=== PATIENT | female | born 1995 | race Caucasian/White ===

== ENCOUNTER → 2025-07-18 | Outpatient (CLI) | payer OTHER ==
[2025-07-18 13:26] LABS: PLATELET COUNT, AUTOMATED 280 10^3/uL (150-450)
[2025-07-18 13:29] LABS: GLUCOSE CHALLENGE TEST 1 HOUR 113 MG/DL (LESS THAN 140)
[2025-07-18 14:14] LABS: Trichomonas vaginalis (AMP) NOT DETECTED (NEGATIVE)
[2025-07-18 14:38] LABS: GC DNA AMPLIFICATION NEGATIVE (NEGATIVE)
[2025-07-18 15:36] LABS: HIV 1&2 SCREEN NEGATIVE (NEGATIVE)
[2025-07-18 15:44] LABS: HEPATITIS C VIRUS ABY INDEX < 0.02 INDEX (<0.8)
== END ==
LOC: M PLALAB 08:36
PROVIDERS: ATTEND Advanced Practice Midwife
DX: Z34.82 Encounter for supervision of other normal pregnancy, second trimester (principal)

== ENCOUNTER → 2025-07-31 | Outpatient (CLI) | payer OTHER ==
[2025-07-31 10:18] LABS: PLATELET COUNT, AUTOMATED 253 10^3/uL (150-450)
[2025-07-31 10:33] LABS: TOTAL PROTEIN,RANDOM URINE 12.6 MG/DL (0.0-14.0)
[2025-07-31 10:39] LABS: LDH LACTATE DEHYDROGENASE 192 U/L (120-246)
[2025-07-31 10:40] LABS: ALT/SGPT 22 U/L (7.0-40); AST/SGOT 31 U/L (<34); CREATININE FOR GFR 0.58 MG/DL (0.55-1.30); GLOMERULAR FILTRATION RATE > 90.0 (>60)
== END ==
LOC: M PLALAB 08:01
PROVIDERS: ATTEND Nurse Practitioner Family
DX: O16.2 Unspecified maternal hypertension, second trimester (principal); Z3A.00 Weeks of gestation of pregnancy not specified

== ENCOUNTER → 2025-08-22 | Outpatient (CLI) | payer OTHER | LOC: M WHC 10:00 | PROVIDERS: ATTEND Nurse Practitioner Family | DX: Z87.59 Personal history of other complications of pregnancy, childbirth and the puerperium (principal) ==

== ENCOUNTER → 2025-09-14 | Outpatient (REF) | payer OTHER | LOC: M PLALAB 15:27 | PROVIDERS: ATTEND Advanced Practice Midwife | DX: Z53.9 Procedure and treatment not carried out, unspecified reason (principal) ==

== ENCOUNTER → 2025-09-14 | Outpatient (CLI) | payer OTHER ==
[2025-09-14 17:37] LABS: PLATELET COUNT, AUTOMATED 281 10^3/uL (150-450)
[2025-09-14 17:57] LABS: TOTAL PROTEIN,RANDOM URINE 15.8 MG/DL (0.0-14.0)
[2025-09-14 18:00] LABS: LDH LACTATE DEHYDROGENASE 196 U/L (120-246)
[2025-09-14 18:03] LABS: ALT/SGPT 20 U/L (7.0-40); AST/SGOT 18 U/L (<34); CREATININE FOR GFR 0.65 MG/DL (0.55-1.30); GLOMERULAR FILTRATION RATE > 90.0 (>60)
== END ==
LOC: M PLALAB 15:32
PROVIDERS: ATTEND Advanced Practice Midwife
DX: O13.3 Gestational [pregnancy-induced] hypertension without significant proteinuria, third trimester (principal); Z3A.00 Weeks of gestation of pregnancy not specified

== ENCOUNTER → 2025-09-19 | Outpatient (CLI) | payer OTHER ==
[~2025-09-19] MED LIST: COLA100C5 PO; ECOT81TA5 PO; PRENTAB53 PO
== END ==
LOC: M RAD 15:29
PROVIDERS: ATTEND Advanced Practice Midwife
DX: O13.3 Gestational [pregnancy-induced] hypertension without significant proteinuria, third trimester (principal); Z3A.36 36 weeks gestation of pregnancy

== ENCOUNTER 2025-09-21 09:30 | Inpatient (IN) | payer OTHER ==
[~2025-09-21] VITALS: Ht 170.2 cm; Wt 94.6 kg
[2025-09-21] MEDS ORDERED: ECOT81TA5 PO (10:53)
[2025-09-21] MEDS ORDERED: PRENTAB53 PO (10:53)
[2025-09-21] MEDS ORDERED: COLA100C5 PO (10:53)
[2025-10-02] VITALS (10 sets, daily range): BP systolic 116–137; BP diastolic 55–74; TEMP 97.6; O2SAT 96–98
[2025-10-02 05:54] LABS: PLATELET COUNT, AUTOMATED 265 10^3/uL (150-450)
[2025-10-02] MEDS ORDERED: HOME MED LIST COMPLETE! XX SCH (06:20)
[2025-10-02] MEDS: LR 1,000 ML IV SCH ×2 (06:35→09:07)
[2025-10-02 06:56] LABS: HIV 1&2 SCREEN NEGATIVE (NEGATIVE)
[2025-10-02 07:04] LABS: HEPATITIS C VIRUS ABY INDEX < 0.02 INDEX (<0.8)
[2025-10-02] MEDS ORDERED: OXYTOCIN 30UNITS IN 0.9% NaCl 500ML IV BAG IV ONE (07:17)
[2025-10-02] MEDS ORDERED: PHENYLephrine 500MCG 5ML (100MCG/ML) SYRINGE As Ordered ONE (07:17)
[2025-10-02] MEDS ORDERED: MORPHINE PRES-FREE INJ 10 MG/10 ML VIAL As Ordered ONE (07:17)
[2025-10-02] MEDS: BICITRA 30 ML SOLN UDC PO ONE (07:23)
[2025-10-02] MEDS: ceFAZolin SODIUM 2 GM in DEXTROSE 5% (D5W) ADV/MINI-BAG 50 ML IV ONE (07:23)
[2025-10-02] MEDS ORDERED: KETOROLAC 30 MG/ML 1 ML VIAL As Ordered ONE (07:44)
[2025-10-02] MEDS ORDERED: ONDANSETRON 4MG/2ML VIAL As Ordered ONE (07:44)
[2025-10-02 08:02] LABS: CORD GAS ABE A -2.8; CORD GAS HCO3 A 23.1 MMOL/L; CORD GAS O2 SAT A 67.5 %; CORD GAS PCO2 A 44.5 mmHg; CORD GAS PH A 7.334 UNITS; CORD GAS PO2 A 28.0 mmHg; CORD GAS SBC A 21.5 MMOL/L; CORD GAS TCO2 A 24.5 MMOL/L
[2025-10-02] MEDS ORDERED: RHOGAM 300MCG (1500IU) INJ IM SCH (08:25)
[2025-10-02] MEDS ORDERED: PERCOCET 5MG/325MG TAB PO PRN ×2 (08:25)
[2025-10-02] MEDS ORDERED: ONDANSETRON 4MG TAB PO PRN (08:25)
[2025-10-02] MEDS ORDERED: ONDANSETRON 4MG/2ML VIAL IV PRN ×2 (08:25→08:55)
[2025-10-02] MEDS ORDERED: SIMETHICONE 80MG CHEW TAB PO PRN (08:25)
[2025-10-02] MEDS ORDERED: IBUP80TA PO (08:38)
[2025-10-02] MEDS ORDERED: OXYC1TAB23 PO (08:39)
[2025-10-02] MEDS: SLF 3 ML SYR IV SCH (08:55)
[2025-10-02] MEDS ORDERED: **NOTE PATIENT COMMENT** MISC XX SCH (08:55)
[2025-10-02] MEDS ORDERED: NALOXONE INJ 0.4 MG/1 ML VIAL IV PRN ×2 (08:55)
[2025-10-02] MEDS ORDERED: diphenhydrAMINE 50 MG/ML VIAL IV PRN (08:55)
[2025-10-02] MEDS ORDERED: MEPERIDINE 25 MG/ML 1 ML VIAL IV PRN (08:55)
[2025-10-02] MEDS ORDERED: HYDROMORPHONE HCL 0.5 MG/0.5 ML SYRINGE IV PRN (08:55)
[2025-10-02] MEDS: PRENATAL VITAMINS CHEWABLE TABLET PO SCH (09:00)
[2025-10-02] MEDS: KETOROLAC 30 MG/ML 1 ML VIAL IV SCH (14:04)
[2025-10-03 02:00] VITALS: BP 121/53; O2SAT 97
[2025-10-03 05:40] VITALS: BP 112/58; O2SAT 98
[2025-10-03 06:25] LABS: PLATELET COUNT, AUTOMATED 246 10^3/uL (150-450)
[2025-10-03] MEDS: IBUPROFEN 800 MG TAB PO SCH (09:41)
[2025-10-03] MEDS: DOCUSATE SODIUM 100 MG CAPSULE PO PRN (09:41)
[2025-10-03 10:00] VITALS: BP 128/68; O2SAT 99
[2025-10-03 14:00] VITALS: BP 118/60; O2SAT 97
[2025-10-03 21:49] VITALS: BP 115/56; O2SAT 98
[2025-10-03 22:15] VITALS: BP 115/56; TEMP 98.1; O2SAT 98
[2025-10-04 01:46] VITALS: BP 127/59; O2SAT 97
[2025-10-04 05:33] VITALS: BP 124/58; O2SAT 97
[2025-10-04] MEDS ORDERED: MEASLES,MUMPS,RUBELLA VACCINE INJ (MMR-II) SC.IMMUN ONE (09:00)
[2025-10-04] MEDS: FLUZONE VACCINE TRI PF(25-26) 0.5ML SYRINGE IM.IMMUN ONE (09:25)
[2025-10-04 10:00] VITALS: BP 117/57; O2SAT 98
== END 2025-10-04 13:43 | disposition home or self-care (01) | DRG 772 ==
LOC: M LDI 10-02 05:08 → EDSTATUS 10-02 07:30 → M OBS 10-02 09:49
PROVIDERS: ADMIT Specialist; ATTEND Specialist
PROC: 10D00Z1 Extraction of Products of Conception, Low, Open Approach (ICD-10-PCS; principal; 2025-10-02 07:30)
DX: O34.211 Maternal care for low transverse scar from previous cesarean delivery (principal); O10.92 Unspecified pre-existing hypertension complicating childbirth; Z37.0 Single live birth; Z3A.38 38 weeks gestation of pregnancy; O69.82X0 Labor and delivery complicated by other cord entanglement, without compression, not applicable or unspecified; Z88.0 Allergy status to penicillin